=== PATIENT | male | born 1960 | race Caucasian/White ===

== ENCOUNTER 2019-09-27 17:41 | Emergency (ER) | payer OTHER ==
[~2019-09-27] VITALS: Ht 177.8 cm; Wt 83.9 kg
[~2019-09-27 17:41] MED LIST: ASACOL HD800 MG PO; SIMVASTATIN40 MG PO; TEGRETOL XR400 MG PO; VITAMIN C500 M1 PO
[2019-09-27] MEDS ORDERED: MELOXICAM7.5 MG PO (18:00)
[2019-09-27 19:55] VITALS: BP 138/70
== END 2019-09-27 19:56 | disposition home or self-care (01) ==
LOC: ER 17:41
DX: J06.9 Acute upper respiratory infection, unspecified (principal); R68.89 Other general symptoms and signs; Z79.899 Other long term (current) drug therapy